=== PATIENT | female | born 2005 | race Two or more races ===

== ENCOUNTER → 2024-01-20 | Day surgery (SDC) | payer SELFPAY ==
[~2024-01-20] MED LIST: Bupivacaine 0.5% 30 ML SDV ONE; Dexamethasone 4 MG/ML 5 ML MDV ONE; HYDROmorphone 2 MG/ML Syringe ONE; Ketorolac 30 MG/ML SDV ONE; Metoclopramide 10 MG/2 ML SDV IVPUSH PRN; Morphine 10 MG/ML SDV ONE; Naloxone 0.4 MG/ML SDV IVPUSH PRN; Ondansetron 4 MG/2 ML SDV ONE; Propofol 200 MG/20 ML SDV ONE; Rocuronium Bromide 50 MG/5 ML Syringe ONE; Ropivacaine 0.5% 5 MG/ML 30 ML SDV ONE; Sugammadex Sodium 200 MG/2 ML VIAL IV ONE; fentaNYL 100 MCG/2 ML SDV ONE; fentaNYL 250 MCG/5 ML SDV ONE; propofoL 50 ML ONE
[2024-01-20 03:53] LABS: APPEARANCE,URINE HAZY; BILIRUBIN,URINE NEGATIVE (NEGATIVE); COLOR,URINE YELLOW; GLUCOSE,URINE NEGATIVE (NEGATIVE); KETONES,URINE >=80 mg/dL (NEGATIVE); LEUKOCYTE ESTERASE,URINE SMALL (NEGATIVE); NITRITE,URINE NEGATIVE (NEGATIVE); OCCULT BLOOD,URINE SMALL (NEGATIVE); PH,URINE 6.5 (5.0-8.0); PROTEIN,URINE NEGATIVE (NEGATIVE)
[2024-01-20 03:54] LABS: BASOPHILS ABSOLUTE AUTO 0.06 K/uL (0.00-0.30); BASOPHILS PERCENT AUTO 0.4 % (0.0-1.0); EOSINOPHILS ABSOLUTE AUTO 0.04 K/uL (0.00-0.70); EOSINOPHILS PERCENT AUTO 0.3 % (0.0-5.0); HEMATOCRIT 39.9 % (37.0-47.0); HEMOGLOBIN 13.7 g/dL (12.0-16.0); IMMATURE GRAN ABSOLUTE AUTO 0.04 K/uL (0.00-0.05); IMMATURE GRAN PERCENT AUTO 0.3 % (0.0-0.4); LYMPHOCYTES ABSOLUTE AUTO 2.45 K/uL (2.00-8.80); LYMPHOCYTES PERCENT AUTO 16.4 % (50.0-65.0); MEAN CORPUSCULAR HEMOGLOBIN 29.6 pg (28.0-32.0); MEAN CORPUSCULAR HGB CONC 34.3 g/dL (32.0-36.0); MEAN CORPUSCULAR VOLUME 86.2 fL (83.0-99.0); MEAN PLATELET VOLUME 10.3 fL (9.4-12.3); MONOCYTES ABSOLUTE AUTO 0.86 K/uL (0.10-1.40); MONOCYTES PERCENT AUTO 5.8 % (2.0-10.0); NEUTROPHILS ABSOLUTE AUTO 11.45 K/uL (1.50-8.50); NEUTROPHILS PERCENT AUTO 76.8 % (35.0-45.0); PLATELET COUNT,PLT 356 K/uL (150-400); RED BLOOD CELL COUNT 4.63 M/uL (4.10-5.30)
[2024-01-20 03:58] LABS: BACTERIA,URINE 1+ (NEGATIVE); MUCUS,URINE MODERATE (NONE-MOD); SQUAMOUS EPITHELIAL CELLS,UR MODERATE
[2024-01-20] MEDS: Ondansetron 4 MG/2 ML SDV IVPUSH ONE (04:00)
[2024-01-20] MEDS: Ketorolac 30 MG/ML SDV IVPUSH ONE (04:00)
[2024-01-20] MEDS: Sodium Chloride 0.9% 1,000 ML IV ONE (04:02)
[2024-01-20 04:20] LABS: ALBUMIN 4.2 g/dL (3.4-5.0); BILIRUBIN TOTAL 0.3 mg/dL (0.2-1.0); CALCIUM 9.2 mg/dL (8.5-10.1); CARBON DIOXIDE,CO2 27.4 mmol/L (21.0-32.0); CREATININE 0.7 mg/dL (0.6-1.0); EST CRCL DRUG DOSING (CG) 102.24 mL/min; POTASSIUM,K 3.9 mmol/L (3.5-5.1); PROTEIN TOTAL,TP 8.6 g/dL (6.4-8.2)
[2024-01-20] MEDS: Morphine 2 MG/ML SYRINGE IVPUSH PRN (05:00)
[2024-01-20] MEDS: Ertapenem 1 GM in Sodium Chloride 0.9% 50 ML IV ONE (05:31)
[2024-01-20] MEDS: Morphine 4 MG/ML Syringe IVPUSH PRN (05:44)
[2024-01-20] MEDS: Metoclopramide 10 MG/2 ML SDV IVPUSH ONE (05:50)
[2024-01-20] MEDS: Ondansetron 4 MG/2 ML SDV IVPUSH PRN (12:00)
[2024-01-20] MEDS: Metoclopramide 10 MG/2 ML SDV IVPUSH SCH (13:12)
[2024-01-20] MEDS: Promethazine 25 MG Tab PO PRN (16:46)
[2024-01-21] MEDS: Iopamidol 755 MG/ML 500 ML Multipack Bottle IVPUSH STA (07:06)
== END | disposition home or self-care (01) ==
LOC: MW.ED 03:34 → MW.SDS 07:54 → MW.MS 11:06 → UNDOADMOB 11:06 → UNDODISOB 18:10
PROVIDERS: ATTEND Internal Medicine
DX: K35.33 Acute appendicitis with perforation, localized peritonitis, and gangrene, with abscess (principal)
CPT/HCPCS: 36415; 44970; 64488; 74177; 76856; 80053; 81001; 81025; 85025; A9270; J0665; J1100; J1170; J1335; J1885; J2270; J2405; J2704; J2765; J2795; J3010; J3490; J7030; Q9967; 00840; 96361; 96365; 96375; 96376; 99285; 99285-25